=== PATIENT | female | born 1970 | race Caucasian/White ===

== ENCOUNTER 2018-05-17 15:05 | Emergency (ER) | payer MEDICAID ==
[~2018-05-17] VITALS: Ht 142.2 cm; Wt 64.0 kg
[2018-05-17 15:17] VITALS: BP 126/75
[2018-05-17] MEDS ORDERED: LIDOCAINE 2% 1000 MG/50 ML VIAL INJ ONE (17:19)
[2018-05-17] MEDS: LIDOCAINE MPF 2% 100 MG/5 ML VIAL INJ ONE (17:59)
[2018-05-17 19:20] VITALS: BP 122/74
== END 2018-05-17 19:20 | disposition home or self-care (01) ==
LOC: MED 15:05
DX: R10.2 Pelvic and perineal pain (principal)
CPT/HCPCS: 56420; 99283; J2001